=== PATIENT | female | born 1950 | race Caucasian/White ===

== ENCOUNTER 2017-03-22 09:17 | Day surgery (SDC) | payer OTHER ==
[~2017-03-22] VITALS: Ht 157.5 cm; Wt 77.7 kg
[~2017-03-22 09:17] MED LIST: AMLO-218 PO; ASPI-664 PO; ATOR40TA68 PO; CALC-67 PO; DOCU-144 PO; HUM100VI14 SC; METF1000 PO; TELM80TA2 PO; TRIA80OI TOP
[2017-03-22] MEDS ORDERED: LIDOCAINE 2% (SDV) 5 ML INJ ONE (09:52)
[2017-03-22] MEDS ORDERED: PROPOFOL 20 ML ONE (09:52)
[2017-03-22 10:00] VITALS: Ht 157.5 cm; Wt 77.7 kg
[2017-03-22] MEDS ORDERED: ATORVASTATIN (10:09)
[2017-03-22 10:15] VITALS: BP 156/74; PULSE 83; RESP 24
--- NOTE | 2017-03-22 10:54 | OPPN ---
Date/Time of Note Date/Time of Note DATE: 03/22/17 TIME: 10:48 Proc Note GI Procedure date: Mar 22, 2017 Pre-procedure Diagnosis Chronic constipation rule out colorectal neoplasm Post-procedure Diagnosis Minimal external hemorrhoids rest of the colon is normal Operation Performed Colonoscopy Surgeon: GUSTAVO LOPEZ MD Anesthesia Type: MAC Anesthesiologist: ATIF MACIAS Estimated blood loss: none Transfusion Required: no Specimen: none Grafts/Implants: none Complications: no Pt Condition post procedure: stable Indications Rule out colon neoplasm diverticulosis Operative\Procedure Findings After informed written consent is obtained patient was asked to layin the left lateral side Intravenous anesthesia was given by anesthesiology Dr. Macias after the informed written consent obtained. When the patient become somnolent Olympus video colonoscope was introduced into the rectum and advanced all the way to the cecum. Moderate amount of liquid stool was noted which was completely aspirated. No large neoplasm noted small polyps cannot be excluded Revealed minimal external hemorrhoids were noted and the procedure was terminated Plan recommend repeat colonoscopy in 10 years Recommend high-fiber diet cc dr lopez. DR Oreilly[[facility]] GUSTAVO LOPEZ MD Mar 22, 2017 10:54
[2017-03-22 11:15] VITALS: BP 136/64; PULSE 70; RESP 20
== END 2017-03-22 14:19 | disposition home or self-care (01) ==
LOC: GIL 09:17
PROVIDERS: ATTEND Internal Medicine Gastroenterology
DX: K64.4 Residual hemorrhoidal skin tags (principal); E11.9 Type 2 diabetes mellitus without complications; I10 Essential (primary) hypertension
CPT/HCPCS: 45378; 82962; Z7610